=== PATIENT | female | born 1940 | race Hispanic/Latino ===

== ENCOUNTER 2024-12-16 15:18 | Emergency (ER) | payer OTHER, SELFPAY ==
--- NOTE | ~2024-12-16 | CT_ITS ---
CT cervical spine wo con Ordering provider: Fabiana Salazar History: . fall, unknown mechanism . Comparison: None. Technique: CT of the cervical spine was performed without contrast. Sagittal and coronal reformatted images were also obtained and reviewed. Automated exposure control and iterative reconstruction kush hnique were employed. The dose-length product was 202.13 mGy-cm. FINDINGS: VERTEBRAE: Minimal anterolisthesis at the level of C6-C7. Is,No subluxation or acute fracture. The oc cipital condyles are intact. Effusion of the posterior elements is seen in the upper thoracic area. DISC SPACES: Normal. Evaluation of the narrowing of the disc C5-C6 and C6-C7. Multilevel facet degen erative disease. Multilevel uncovertebral joint osteoarthritic changes. Slight narrowing of the left foramina at the level of C2-C3. Narrowing of the right foramen at the level of C3-C4. Bilateral narro wing of the foramina at the level of C4-C5, C5-C6 and C6-C7. PARASPINOUS SOFT TISSUES: Calcified lesion in the left thyroid. IMPRESSION: No acute osseous abnormality cervical spine. Minimal anterolisthesis at the level of C6-C7. Multilevel degenerative disc disease. Reviewed, dictated and finalized at location A. IMPRESSION: No acute osseous abnormality cervical spine. Minimal anterolisthesis at the lev el of C6-C7. Multilevel degenerative disc disease.
--- NOTE | ~2024-12-16 | CT_ITS ---
EXAMINATION: CT thoracic lumbar wo con DATE: 12/16/2024 16:23 INDICATION: Back pain post fall TECHNIQUE: Computed tomography (CT) of the thoracic and lumbar spine was performed without intravenou s contrast. Automated exposure control and iterative reconstruction technique were employed. The dose -length product was 1420.24 mGy-cm. COMPARISON: None FINDINGS: Thoracic spine: 23 degree thoracic dextroscoliosis with chronic appearing mild left-sided anterior wedging at T6, T7 and T8. Sagittal alignment is normal. There is additional chronic appearing mild likely physiologic a nterior wedging at T11 and T12. No acute fracture. Multilevel moderate left-sided predominant disc he ight loss throughout the mid to lower thoracic spine. There is multilevel moderate to severe thoracic facet osteoarthritis contributing to mild neural foraminal stenosis most prominent in the T2-T3 thro ugh T5-T6. No central canal stenosis. Mild dependent atelectasis in the visualized lungs. 5 mm right upper lobe nodule. Heart size is normal. Atherosclerotic coronary artery calcification is. No pericar dial or pleural effusion. Thoracic aorta is normal in caliber. Lumbar spine: 15 degrees lumbar levoscoliosis. 5 mm anterolisthesis L4 on L5. Chronic appearing L4 burst fracture w ith up to 60% central vertebral body height loss and with 6 mm retropulsion of the posterior rim of t he superior endplate. Remaining vertebral body heights are normal. No acute fractures identified. Mod erate disc height loss at L3-L4 and L4-L5. Mild disc height loss at L2-L3 and L5-S1. Multilevel sever e bilateral facet osteoarthritis from L2-L3 through L5-S1. This along with the retropulsion at L4 res ults in severe central canal stenosis at the level of L3-L4. There is additional moderate central can al stenosis at L4-5 resulting from a prominent disc bulge. Additional mild disc bulge contributing to mild central canal stenosis at T12-L1 through L2-L3 and at L5-S1. There is moderate neural foraminal stenosis on the left at L5-S1 and bilaterally at L1-L2, L3-L4 and L4-L5. Mild stenosis remaining lum bar neural foramina. 5.8 cm exophytic cyst at the lower pole the right kidney. Several diverticula al charlene the sigmoid colon without adjacent from trace stranding to suggest diverticulitis. Methylmethacry late at the bilateral sacral ala likely for treatment of prior insufficiency fractures. Old healed fr actures and across the S2 vertebral body. IMPRESSION: 1. 23 degrees thoracic dextro scoliosis with moderate spondylosis. No acute osseous abnormality. 2. 15 degrees lumbar levoscoliosis with chronic L4 burst fracture and moderate spondylosis. No acute osseous abnormality. 3. 5 mm right upper lobe nodule. If the patient is low risk for lung cancer, no follow-up is needed. If the patient is high risk (i.e., history of smoking or asbestos or significant radiation exposure), optional follow-up chest CT could be considered at 12 months. Reviewed, dictated and finalized at location A. IMPRESSION: 1. 23 degrees thoracic dextro scoliosis with moderate spondylosis. No acute oss eous abnormality. 2. 15 degrees lumbar levoscoliosis with chronic L4 burst fracture and moderate spondylosis. No acute osseous abnormality. 3. 5 mm right upper lobe nodule. If the patient is low risk for lung cancer, no follow-up is needed. If the patient is high risk (i.e., history of smoking or asbestos or significant radiation exposure), optional follow-up chest CT could be considered at 12 months.
--- NOTE | ~2024-12-16 | XR_ITS ---
XR chest 2V Ordering provider: Pipo Tinajero MD History: 84 years Female with . right lower rib pain . Comparison: None. FINDINGS: MEDIASTINUM: The cardiac silhouette is moderately enlarged. LUNGS: No infiltrates, effusions or pneumothorax. OTHER: No free air under the diaphragm. Degenerative changes of the spine. Dextroscoliosis. IMPRESSION: Reviewed, dictated and finalized at location A. IMPRESSION:
--- NOTE | ~2024-12-16 | CT_ITS ---
EXAMINATION: CT brain wo con DATE: 12/16/2024 16:20 INDICATION: Fall. Unknown head injury. TECHNIQUE: Computed tomography (CT) of the head was performed without intravenous contrast. Sagittal and coronal reconstructions were performed. The mA was adjusted according to patient size. Iterative reconstruction technique was employed. The dose-length product was 605.33 mGy-cm. COMPARISON: None FINDINGS: No fracture. Small focus of dystrophic calcification associated with a small infarct in the right fro ntal lobe. Additional small old lacunar infarct in the right frontal lobe wu radiata. No acute in tracranial hemorrhage, acute infarction or abnormal extra axial fluid collection. There is mild scatt ered white matter hypoattenuation consistent with chronic small vessel ischemic disease. Symmetric pr ominence of the sulci and ventricles consistent with mild age-appropriate diffuse cerebral volume los s. No mass/mass effect. Changes of bilateral intraocular lens replacement. Mucosal thickening with as sociated calcification within the left maxillary sinus which demonstrates thickened sclerotic pang c onsistent with chronic sinusitis. Small left mastoid effusion. IMPRESSION: 1. No fracture or acute intracranial process. 2. 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 3. Age-related changes including mild diffuse volume loss and mild scattered white matter hypoattenua tion consistent with small vessel ischemic disease. 4. Chronic left maxillary sinusitis. Reviewed, dictated and finalized at location A. IMPRESSION: 1. No fracture or acute intracranial process. 2. 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 3. Age-related changes including mild diffuse volume loss and mild scattered wh ite matter hypoattenuation consistent with small vessel ischemic disease. 4. Chronic left maxillary sinusitis.
[2024-12-16 15:32] VITALS: BP 131/86; PULSE 71; RESP 16; TEMP 36.4; O2SAT 100
--- NOTE | 2024-12-16 15:50 | ED.FALL ---
HPI - Fall General Chief Complaint: Fall <Fabiana Salazar APRN - Last Filed: 12/16/24 15:56> Stated Complaint: fall <Fabiana Salazar APRN - Last Filed: 12/16/24 15:56> Time Seen by Provider: 12/16/24 15:40 <Fabiana Salazar APRN - Last Filed: 12/16/24 15:56> Focused HPI: Patient is an 84-year-old (Guatemalan speaking) female who presents to the ER following a fall that took place last night at 3:00 a.m.. She reports she slipped and fell out of bed, although she does not remember the mechanism. Patient reports she remembers waking up on the floor. She endorses a history of a stroke, but is not on blood thinners. She denies any urinary symptoms, headache, recent fevers, or abdominal pain. Patient endorses increased pain with movement. GENERAL: Well-appearing, well-nourished, and in no acute distress. HEAD: Normocephalic, atraumatic. CHEST: Clear to auscultation. ?No respiratory distress. HEART: Regular rate and rhythm.? NEURO: ?Alert and oriented x3. Patient screened in triage and initial orders placed.? ?Additional care and disposition to be based upon?diagnostic testing and treatment. <Fabiana Salazar APRN - Last Filed: 12/16/24 15:56> History of Present Illness HPI Narrative: I agree with the above HPI <Pipo Tinajero MD - Last Filed: 12/17/24 07:22> Related Data Allergies/Adverse Reactions: Allergies Allergy/AdvReac Type Severity Reaction Status Date / Time No Known Allergies Allergy Verified 12/16/24 15:23 <Fabiana Salazar APRN - Last Filed: 12/16/24 15:56> Review of Systems Review of Systems: All systems reviewed & are unremarkable except as noted in HPI and below <Pipo Tinajero MD - Last Filed: 12/17/24 07:22> Exam Narrative: APPEARANCE: Well appearing, no pain, no distress, well-nourished. HEAD: normocephalic, atraumatic. EYES: PERRLA/EOMI, conjunctivae clear. NOSE: Normal no drainage EARS:TMS clear with good light reflex. THROAT: Pharynx clear, no exudate. NECK: Supple. No adenopathy, no masses. RESPIRATORY: Airway patent, respirations nonlabored. Clear to auscultation bilaterally, no rales, rhonchi, wheezing. CARDIOVASCULAR: Regular rate and rhythm without murmurs rubs or gallops. ABDOMINAL: Soft, nontender, nondistended, normal bowel sounds MUSCULOSKELETAL: Right-sided rib tenderness NEURO: Alert. Cranial nerves II through XII intact. Good gait. Good coordination SKIN: Warm, dry. Normal Color <Pipo Tinajero MD - Last Filed: 12/17/24 07:22> Course Vital Signs Vital signs: Vital Signs Temperature 97.6 F 12/16/24 15:32 Pulse Rate 71 12/16/24 15:32 Respiratory Rate 16 12/16/24 15:32 Blood Pressure 131/86 12/16/24 15:32 Pulse Oximetry 100 12/16/24 15:32 Temperature 97.6 F 12/16/24 15:32 Pulse Rate 55 L 12/16/24 17:57 Respiratory Rate 18 12/16/24 17:57 Blood Pressure 179/66 H 12/16/24 18:19 Pulse Oximetry 100 12/16/24 17:57 <Fabiana Salazar APRN - Last Filed: 12/16/24 15:56> Vital Signs Temperature 97.6 F 12/16/24 15:32 Pulse Rate 71 12/16/24 15:32 Respiratory Rate 16 12/16/24 15:32 Blood Pressure 131/86 12/16/24 15:32 Pulse Oximetry 100 12/16/24 15:32 Temperature 97.6 F 12/16/24 15:32 Pulse Rate 55 L 12/16/24 17:57 Respiratory Rate 18 12/16/24 17:57 Blood Pressure 179/66 H 12/16/24 18:19 Pulse Oximetry 100 12/16/24 17:57 <Pipo Tinajero MD - Last Filed: 12/17/24 07:22> MDM - Fall MDM Narrative Medical decision making narrative: 84-year-old female presents emergency department for evaluation after a fall. Patient does have some right-sided rib tenderness that is concerning for rib fracture rib contusion. Patient had negative imaging of chest x-ray, T-spine C-spine and brain. Patient family were updated on the results of the workup and plan for treatment for rib contusion. Patient was provided medications for pain control. Patient family were warmed on the risks of [place] for pain control including constipation and increased risk of falls. All questions concerns were addressed <Pipo Tinajero MD - Last Filed: 12/17/24 07:22> Differential Diagnosis Differential diagnosis: Likely other (Subdural hematoma, subarachnoid hemorrhage, rib fracture, rib contusion, pneumothorax, pneumonia) <Pipo Tinajero MD - Last Filed: 12/17/24 07:22> Imaging Data Radiologist's impression: Impressions Head CT 12/16/24 16:23 IMPRESSION: 1. No fracture or acute intracranial process. 2. 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 3. Age-related changes including mild diffuse volume loss and mild scattered white matter hypoattenuation consistent with small vessel ischemic disease. 4. Chronic left maxillary sinusitis. Cervical Spine CT 12/16/24 16:28 IMPRESSION: No acute osseous abnormality cervical spine. Minimal anterolisthesis at the level of C6-C7. Multilevel degenerative disc disease. Thoracic/Lumbar Spine CT 12/16/24 16:31 IMPRESSION: 1. 23 degrees thoracic dextro scoliosis with moderate spondylosis. No acute osseous abnormality. 2. 15 degrees lumbar levoscoliosis with chronic L4 burst fracture and moderate spondylosis. No acute osseous abnormality. 3. 5 mm right upper lobe nodule. If the patient is low risk for lung cancer, no follow-up is needed. If the patient is high risk (i.e., history of smoking or asbestos or significant radiation exposure), optional follow-up chest CT could be considered at 12 months. <Pipo Tinajero MD - Last Filed: 12/17/24 07:22> Discharge Plan Discharge Clinical Impression: Contusion of rib on right side <Fabiana Salazar APRN - Last Filed: 12/16/24 15:56> Patient Disposition: Home <Fabiana Salazar APRN - Last Filed: 12/16/24 15:56> Condition: Stable <Fabiana Salazar APRN - Last Filed: 12/16/24 15:56> Instructions: Antibiotic Form, Hydrocodone (By mouth), How to Use an Incentive Spirometer (ED), Rib Contusion (ED) <Fabiana Salazar APRN - Last Filed: 12/16/24 15:56> Additional Instructions: Incentive spirometer as directed. Tylenol for pain control, for additional pain control replace the Tylenol with [place]. Do not take [place] and Tylenol at the same time as both do contain acetaminophen. Have close follow-up with your primary care physician. <Fabiana Salazar APRN - Last Filed: 12/16/24 15:56> Patient Language: Guatemalan <Fabiana Salazar APRN - Last Filed: 12/16/24 15:56> Prescriptions: New hydrocodone-acetaminophen 5-325 mg tablet 1 tablet PO Q12H PRN (Reason: pain) Qty: 10 0RF <Fabiana Salazar APRN - Last Filed: 12/16/24 15:56> Follow-up/Referrals: PHYSICIAN NOT ON STAFF,NONSTAFF [Non-Staff] - <Fabiana Salazar APRN - Last Filed: 12/16/24 15:56>
[2024-12-16 16:52] VITALS: BP 158/66; PULSE 54; RESP 18; O2SAT 100
--- NOTE | 2024-12-16 16:53 | PC.NURSE ---
84yo kazakh speaking F to ER c/o fall from bed yesterday at 0400. Patient reports slipping and falling on her step stool beside her bed. Denies any precipitating factors or symptoms. Denies hitting her head. Patient c/o R lower back pain, worsening, 04/02. No obvious bruising or deformity noted. Pt endorses difficulty with movement and painful ambulation. Pt A&Ox4, speech clear. RR even and unlabored. Skin WDL. Pt on continuous nibp and pulse ox monitor, VS as charted. Call light in reach with family at bedside.
--- OUTSIDE RECORDS SUMMARY | 2024-12-16 17:45 | XMS_ITS | Encounter Summary ---
Author Organization [facility] Address [address] [place] [address] Care Team Providers Care Herbicide Service Sales Representative Name Role Phone Asked, No Prov Designated Primary Care Provider Unavailable Encounter Details Date Type Department Care Team (Late st Contact Info) Description 09/16/2022 Scan [facility] [address] [place] [phone] Erlin Canas MD [address] [facility] [place] [address] <No scans attached> Social History Tobacco Use Types Packs/Day Years Used Date Smoking Tobacco: Former Smokeless Tobacco: Never PHQ-2 Answer Date Recorded PHQ-2 Score 1 07/03/2021 Sex and Gender Information Value Date Recorded Sex Assigned at Not on file Gender Identity Not on file Sexual Orientation Not on file COVID-19 Exposure Response Date Recorded In the last 10 days, have yo u been in contact with someone who was confirmed or suspected to have Coronavirus/COVID-19? No / Unsure 09/10/2022 12:21 PM LOCAL SUPERINTENDENT documented as of this encounter Plan of Treatment Upcoming Encounters Date Type Department Care Team (Late st Contact Info) Description 01/25/2025 3:30 PM CDT Appointment [address] [phone] Charito Ghotra APN [address] [place] [address] documented as of this encounter Visit Diagnoses Not on filedocumented in this encounter Care Teams Herbicide Service Sales Representative Relationship Specialty Start Date End Date Asked, No Prov Designated [place] PCP - General 07/08/13 documented as of this encounter
--- OUTSIDE RECORDS SUMMARY | 2024-12-16 17:45 | XMS_ITS | Clinical Summary ---
Author Organization [facility] Address [address] [place] [address] Phone Care Team Providers Care Management Aide Name Role Phone Unavailable Primary Care Provider Unavailabl e Social History Tobacco Use Types Packs/Day Years Used Date Smoking Tobacco: Never Assessed Intimate Partner Violence Answer Date R ecorded Feels Safe at Home Not on file 10/23/2023 Comments Unknown Sex and Gender Information Value Date Recorded Sex Assigned at Not on file Legal Sex Female 2:33 PM [employer] Gender Identity Not on file Sexual Orientation Not on file Plan of Treatment Health Maintenance Due Date Last Done Comments Annual Preventive Visit 1940 Osteoporosis Screening 1940 Tdap/DTaP/Td Vaccine (1 - Tdap) 1961 Pneumococcal Vaccine: 50+ Years (1 of 1 - PCV) 993 Zoster Vaccine (1 of 2) 1992 HIV Screening 12/11/2007 RSV 60+ and Currently (1 - 1-dose 75+ series) 2017 COVID-19 Vaccine ( - season) 2024 Influenza Vaccine (#1) 2024
--- OUTSIDE RECORDS SUMMARY | 2024-12-16 17:45 | XMS_ITS | Encounter Summary ---
Author Organization [facility] Address [address] [place] [address] Care Team Providers Care Fish Frog Or Oyster Farmer Name Role Phone Asked, No Prov Designated Primary Care Provider Unavailable Encounter Details Date Type Department Care Team (Late st Contact Info) Description 03/12/2021 Scan [facility] Medical Records Department - [facility] [address] [facility], [address] Ebony Ron PA [address] [place], [place] [address] <No scans attached> Social History Tobacco Use Types Packs/Day Years Used Date Smoking Tobacco: Never Assessed Sex and Gender Information Value Date Recorded Sex Assigned at Not on file Gender Identity Not on file Sexual Orientation Not on file documented as of this encounter Plan of Treatment Upcoming Encounters Date Type Department Care Team (Late st Contact Info) Description 01/25/2025 3:30 PM CDT Appointment [facility] [address] [place] [phone] Charito Ghotra APN [address] [place] [address] documented as of this encounter Visit Diagnoses Not on filedocumented in this encounter Care Teams Fish Frog Or Oyster Farmer Relationship Specialty Start Date End Date Asked, No Prov Designated [place] PCP - General 07/08/13 documented as of this encounter
--- OUTSIDE RECORDS SUMMARY | 2024-12-16 17:45 | XMS_ITS | Referral Summary ---
Author Organization [facility] Address [address] [place] [address] Care Team Providers Care Lamp Cleaner Street Light Name Role Phone Asked, No Prov Designated Primary Care Provider Unavailable Source Comments You are receiving this document as you are listed as the PCP, follow-upprovider, or the patient hasbeen referred to you for consultation. This is incompliance with CMS Transitions of Care Requirement. Note: Specific treatmentrecords and notes about services for mental health, developmental disabilities,alcoholism, drug dependence, or substance abuse, you will need to contact the[facility] Records Department at [phone] and complete a separate Release ofAuthorization form. They are also available to answer other questions.[facility] Encounters Date Type Department Care Team Description 11/16/2024 4:55 PM CDT Ancillary Procedure [facility] [address] [place] [phone] Rell De La Fuente MD Lumbosacral spondylosis without myelopathy Discharge Disposition: HOME 11/16/2024 Travel 11/16/2024 4:30 PM CDT Office Visit [facility] [address] [place] [phone] Rell De La Fuente MD Lumbosacral spondylosis without myelopathy (Primary Dx) Discharge Disposition: HOME 11/07/[address] [facility] [address] [place] [phone] Alexandra Langston CMA from Last 3 Months Allergies No known active allergies Medications * Please verify all current medications with the patient. Medication Sig Dispensed Refills Start Date End Date Status amLODIPine 10 MG PO tablet Take 1 Tablet by mouth daily. Active levothyroxine 125 MCG PO tablet Take by mouth daily. Active hydrochlorothiazid e 25 MG PO tablet Take 1 Tablet by mouth daily. Active aspirin 81 MG chewable tablet Take 1 Tablet by mouth. take with food Active OMEPRAZOLE Active vitamin D-2, ergocalciferol, [address]781 UNIT capsule Take 1 Capsule by mouth weekly. 12 Capsule 4 07/08/2021 Active calcitonin, salmon (MIACALCIN) 200 UNIT/ACT nasal spray place 1 [place] into both nostrils daily. Active methylPREDNISolone (Medrol) 4 MG tablet (Dose Pack) Take as directed 1 Each 07/23/2022 Active methocarbamol (ROBAXIN) 500 MG tablet Take 1 Tablet by mouth 3 times daily. 90 Tablet 08/06/2022 Active alendronate (FOSAMAX) 70 MG tablet Take 1 Tablet by mouth weekly. Active HYDROcodone-acetam inophen ([place]) 5-325 MG per tablet Take 1 Tablet by mouth every 12 (twelve) hours if needed for pain. 60 Tablet 07/20/2023 Active Additional Information Patient not taking.Reported on 05/16/2024 Naloxone HCl 4 MG/0.1ML Liquid 0.1 mL by nasal route once as needed (for any signs symptoms of respiratory depression related to opioid use) for up to 1 dose. 1 Each 07/20/2023 Active Hospital, Clinic, or Other Facility Administered Medication Ordered Dose Route Frequency Start Date End Date Status bupivacaine (preservative free) 0.25 % 12.5 mg injIndications:Lumbos acral spondylosis without myelopathy 12.5 mg fred-neural NOW 11/16/2024 11/17/2024 Ended triamcinolone acetonide injection 40 mgIndications:Lumbosa cral spondylosis without myelopathy 40 mg fred-neural NOW 11/16/2024 11/17/2024 Ended Active Problems Problem Noted Date Diagnosed Date Bilateral primary osteoarthritis of knee 024 Lumbosacral spondylosis without myelopathy 07/20 Spinal stenosis of lumbar re gion with neurogenic claudication 07/20/2023 Lumbar radiculopathy 07/20/2023 History of vertebral compression fracture 2022 Nausea and vomiting 07/18/2013 Abdominal pain, generalized 07/18/2013 Hypokalemia 07/18/2013 GIOVANY (acute kidney injury) 07/18/2013 Metabolic acidosis 07/18/2013 Diarrhea 07/18/2013 Social History Tobacco Use Types Packs/Day Years Used Date Smoking Tobacco: Former Smokeless Tobacco: Never Tobacco Cessation:Counseling Given: Yes PHQ-2 Answer Date Recorded PHQ-2 Score 0 11/16/2024 Sex and Gender Information Value Date Recorded Sex Assigned at Not on file Gender Identity Not on file Sexual Orientation Not on file Last Filed Vital Signs Vital Sign Reading Time Taken Comments Blood Pressure 187/74 11/16/2024 4:21 PM CDT Pulse 61 11/16/2024 4:21 PM CDT Temperature 37.1 C (98.7 F) 05/16/2020 10:36 AM CDT Respiratory Rate 16 11/16/2024 4:21 PM CDT Oxygen Saturation 94% 11/16/2024 4:21 PM CDT Inhaled Oxygen Concentration - - Weight 64 kg (141 lb) 11/16/2024 4:21 PM CDT Height 149.9 cm (4' 11 ) 11/16/2024 4:21 PM CDT Body Mass Index 28.48 11/16/2024 4:21 PM CDT Plan of Treatment Upcoming Encounters Date Type Department Care Team (Late st Contact Info) Description 01/25/2025 3:30 PM CDT Appointment [address] [phone] Charito Ghotra APN [address] [place] [address] Procedures Procedure Name Priority Date/Time Associated Diagnosis Comments [place] XRAY FOR PAIN CLINIC Routine 11/16/2024 5:25 PM CDT Lumbosacral spondylosis without myelopathy NM DEXA BONE DENSITY Routine 09/23/2021 8:38 AM CUSTOMER CARE TEAM COACH Compression fracture of L4 vertebra with delayed healing, subsequent encounter COLONOSCOPY Routine 07/19/2013 11:17 AM CUSTOMER CARE TEAM COACH from Last 3 Months or Most Recently Relevant to Health Maintenance Results * FL XRAY FOR PAIN CLINIC (11/16/2024 5:25 PM CDT) Narrative IMAGING - 11/16/2024 5:26 PM CDT This procedure doesn't have a radiologist's report. Please see the Chart Review activity for pertinent information. Rell De La Fuente MD IMG FLUOROSCOPY PROC EDURES IMAGING [address] [place] [address] * NM DEXA BONE DENSITY (09/23/2021 8:38 AM CUSTOMER CARE TEAM COACH) Anatomical Region Laterality Modality Aortic arch Radiographic Noa ging 09/23/2021 8:49 AM CUSTOMER CARE TEAM COACH Impressions 09/23/2021 8:51 AM CUSTOMER CARE TEAM COACH IMPRESSION: Osteoporosis is associated with a high fracture risk. There is osteoporosis of one or both femoral necks. There is osteopenia of the lumbar spine. WHO CRITERIA FOR OSTEOPOROSIS: INCREASED BMD: T SCORE > +1.0 NORMAL BMD: T SCORE = +1.0 TO -1.0 (low Fracture Risk) OSTEOPENIA: T SCORE = -1.1 TO -2.5 (Moderate Fracture Risk) OSTEOPOROSIS: T SCORE <= -2.5 (High Fracture Risk) Risk Factors for Osteoporosis Nonmodifiable 1. History of fracture as an adult 2. History of fracture in first degree relative 3. race 4. Advanced age 5. Female sex 6. Dementia 7. Poor health/frailty Modifiable 1. Current cigarette smoking 2. Low body weight 3. Estrogen deficiency 4. Early menopause/bilateral ovariectomy 5. Premenopausal amenorrhea (>1 year) 6. Lifelong poor calcium intake 7. Alcoholism 8. Impaired eyesight despite correction 9. Recurrent falls 10. Inadequate physical activity Finalized report approved by Attending: Dionte Powell on 09/23/2021 8:51 AM. Narrative 09/23/2021 8:51 AM CUSTOMER CARE TEAM COACH CLINICAL INDICATION: .S32.040G: Wedge compression fracture of fourth lumbar vertebra, subsequent encounter for fracture with delayed healing COMPARISON: None. TECHNIQUE: Location of Scan: [facility] Device: [employer] NOTE: This device uses different regions and technology for BMD measurement. Absolute values for BMD may be different. Automatic trending with prior studies performed over the L2-L4 region is unavailable. Comparison is made to the L1-L4 region if available. FINDINGS: Lumbar Spine: The AVG BMD OF the L1-L4 region = 0.835 gm/cm2, T-score = -1.9, Z-score = 0.7. Findings are consistent with osteopenia. Degenerative changes are noted in the lumbar spine. This can artificially elevate the calculation of bone density. Femoral Neck: The total BMD of the LEFT femoral neck = 0.551 gm/cm2, T-score = -2.7, Z-score = -0.5. The Findings are consistent with osteoporosis. The total BMD of the RIGHT femoral neck = 0.591 gm/cm2, T-score = -2.3, Z-score = -0.2. The Findings are consistent with osteopenia. The MEAN BMD of the femoral necks (used for trending) = 0.571 gm/cm2, T-score = -2.5, Z-score = -0.3. The Findings are consistent with osteoporosis. Proximal Femurs: The MEAN BMD of the proximal femurs = 0.552 gm/cm2, T-score = -3.2, Z-score = -1.1. The Findings are consistent with osteoporosis. Trabecular Bone Score (Lumbar Spine Only): The trabecular bone score of the L1-L4 region = 1.277. Fracture risk class: Moderate. Risk class values for TBS: Low: >= 1.300 Moderate: 1.200 to 1.300 High: <1.200 The trabecular bone score is an independent risk of fracture. The results are based on the texture of the of the DEXA image and is related to the bone microarchitecture. These results are provided as a complement to the DEXA analysis and can be used to further refine the BMD findings. Risk Assessment Tool Score (FRAX): Value adjusted based on Trabecular Bone Score (if available) The FRAX score is unavailable for one of the following reasons: 1. The patient has a normal BMD. 2. The patient is younger than 40 years of age. 3. The patient is premenopausal. 4. The patient has already had a vertebral or hip fracture. 5. The T-score for the total spine, total hip or femoral neck is at or below -2.5. 6. The patient is already receiving therapy for decreased bone density. Procedure Note Dionte Powell MD - 09/23/2021 CLINICAL INDICATION: .S32.040G: Wedge compression fracture of fourthlumbar vertebra, subsequent encounter for fracture with delayed healing COMPARISON: None. TECHNIQUE: Location of Scan: [facility] Device: [employer] NOTE: This device uses different regions and technology for BMDmeasurement. Absolute values for BMD may be different. Automatic trending with priorstudies performed over the L2-L4 region is unavailable. Comparison is made to theL1-L4 region if available. FINDINGS: Lumbar Spine: The AVG BMD OF the L1-L4 region = 0.835 gm/cm2, T-score = -1.9, Z-score= 0.7. Findings are consistent with osteopenia. Degenerative changes are noted in the lumbar spine. This canartificially elevate the calculation of bone density. Femoral Neck: The total BMD of the LEFT femoral neck = 0.551 gm/cm2, T-score = -2.7, Z-score = -0.5. The Findings are consistent with osteoporosis. The total BMD of the RIGHT femoral neck = 0.591 gm/cm2, T-score = -2.3, Z-score = -0.2. The Findings are consistent with osteopenia. The MEAN BMD of the femoral necks (used for trending) = 0.571 gm/cm2,T-score = -2.5, Z-score = -0.3. The Findings are consistent with osteoporosis. Proximal Femurs: The MEAN BMD of the proximal femurs = 0.552 gm/cm2, T-score = -3.2,Z-score = -1.1. The Findings are consistent with osteoporosis. Trabecular Bone Score (Lumbar Spine Only): The trabecular bone score of the L1-L4 region = 1.277. Fracture risk class: Moderate. Risk class values for TBS: Low: >= 1.300 Moderate: 1.200 to 1.300 High: <1.200 The trabecular bone score is an independent risk of fracture. The resultsare based on the texture of the of the DEXA image and is related to the bone microarchitecture. These results are provided as a complement to the DEXA analysis and can beused to further refine the BMD findings. Risk Assessment Tool Score (FRAX): Value adjusted based on Trabecular Bone Score (if available) The FRAX score is unavailable for one of the following reasons: 1. The patient has a normal BMD. 2. The patient is younger than 40 years of age. 3. The patient is premenopausal. 4. The patient has already had a vertebral or hip fracture. 5. The T-score for the total spine, total hip or femoral neck is at orbelow -2.5. 6. The patient is already receiving therapy for decreased bone density. IMPRESSION: IMPRESSION: Osteoporosis is associated with a high fracture risk. There is osteoporosis of one or both femoral necks. There is osteopenia of the lumbar spine. WHO CRITERIA FOR OSTEOPOROSIS: INCREASED BMD: T SCORE > +1.0 NORMAL BMD: T SCORE = +1.0 TO -1.0 (low Fracture Risk) OSTEOPENIA: T SCORE = -1.1 TO -2.5 (Moderate Fracture Risk) OSTEOPOROSIS: T SCORE <= -2.5 (High Fracture Risk) Risk Factors for Osteoporosis Nonmodifiable 1. History of fracture as an adult 2. History of fracture in first degree relative 3. race 4. Advanced age 5. Female sex 6. Dementia 7. Poor health/frailty Modifiable 1. Current cigarette smoking 2. Low body weight 3. Estrogen deficiency 4. Early menopause/bilateral ovariectomy 5. Premenopausal amenorrhea (>1 year) 6. Lifelong poor calcium intake 7. Alcoholism 8. Impaired eyesight despite correction 9. Recurrent falls 10. Inadequate physical activity Finalized report approved by Attending: Dionte Powell on 09/23/2021 8:51AM. Jasmin Gottlieb MD IMG XR PROCEDURES * COLONOSCOPY (07/19/2013 11:17 AM CUSTOMER CARE TEAM COACH) 07/19/2013 11:1 7 AM CUSTOMER CARE TEAM COACH Valarie Reina MD GI LAB COLONOSCOP Y PROVATION from Last 3 Months or Most Recently Relevant to Health Maintenance Care Teams Lamp Cleaner Street Light Relationship Specialty Start Date End Date Asked, No Prov Designated [place] PCP - General 07/08/13
--- OUTSIDE RECORDS SUMMARY | 2024-12-16 17:45 | XMS_ITS | Clinical Summary ---
Author Organization [facility] Address [address] [address] Care Team Providers Care Motion Picture Projectionist Name Role Phone Richelle Orellana M.D. Unavailable [phone] Love London P.ASumanth Unavailable [phone] Ebony Ron Primary Care Provider [phone] Unknown, Unk Unavailable Unavailable Marylou Fitzgerald PRickey Unavailable [phone] Allergies No known active allergies Medications diclofenac sodium (Voltaren) 1 % gel Apply 1 Application to the affected area(s) four times daily as needed (pain). Active traZODone (DesyreL) 100 mg tablet Take 100 mg by mouth every night at bedtime. Active levothyroxine 50 mcg tablet Take 50 mcg by mouth every morning. Active omeprazole (PRILOSEC) 40 mg capsule Take 40 mg by mouth every morning. Active alendronate (FOSAMAX) 70 mg tablet Take 70 mg by mouth every 7 days. Active gabapentin (Neurontin) 300 mg capsule Take 300 mg by mouth three times daily. Active cholecalcifero l (vitamin D3) (VITAMIN D3 ORAL) Take 1 tablet by mouth daily. Active VITAMIN B COMPLEX ORAL Take 1 tablet by mouth daily. Active MAGNESIUM OXIDE ORAL Take 1 tablet by mouth daily. Active lisinopriL (PRINIVIL) 40 mg tablet Take 1 tablet by mouth daily. 30 tablet 3 Active acetaminophen (TYLENOL) 500 mg tablet Take 2 tablets by mouth every 8 hours as needed for moderate pain or mild pain. Acetaminophen max dose 4 g per 24 hours. 30 tablet 3 Active lidocaine (Lidoderm) 5% patch Apply 1 patch to the skin every 24 hours. Keep patch on for 12 hours, then remove patch and keep off for 12 hours. 30 patch 3 Active metoprolol succinate (TOPROL XL) 25 mg extended release tablet Take 1 tablet by mouth daily. 30 tablet 3 Active mirtazapine (REMERON) 7.5 mg tablet Take 1 tablet by mouth every night at bedtime. 7 tablet 3 Active NIFEdipine-XL (Procardia XL) 30 mg extended-relea se tablet Take 1 tablet by mouth daily. 30 tablet 3 Active polyethylene glycol 3350 (MIRALAX) 17 gram oral packet Take 1 packet by mouth daily. Dissolve in 8 ounces of water. 7 packet 3 Active sennosides-doc usate sodium (JIMENA-COLACE) 8.6-50 mg tab Take 1 tablet by mouth twice daily. 14 tablet 3 Active traMADol (Ultram) 50 mg tablet Take 1 tablet by mouth every 6 hours as needed for moderate pain. 14 tablet 3 Active pantoprazole (PROTONIX) 40 mg tablet Take 40 mg by mouth daily. 3 Active CALCIUM ORAL Take by mouth. Ac tive ascorbic acid (VITAMIN C ORAL) Take by mouth. Activ e Active Problems Problem Noted Date Diagnosed Date IVH (intraventricular hemorrhage) 03/24/2023 Hypertension 02/11/2023 Hypothyroid 02/11/2023 Osteoporosis 02/11/2023 Chronic knee pain 02/11/2023 Closed compression fracture of L4 lumbar vertebr a, sequela 02/11/2023 Family History Medical History Relation Comments Cancer - Colorectal Father Relation Status Comments Father Mother Social History Tobacco Use Types Packs/Day Years Used Date Smoking Tobacco: Never Smokeless Tobacco: Never Tobacco Cessation:Counseling Given: Not Answered Alcohol Use Standard Drinks/Week Comments Never 0 (1 standard drink = 0.6 oz pur e alcohol) Comments No Sex and Gender Information Value Date Recorded Sex Assigned at Not on file Legal Sex Female 7:19 PM CDT Gender Identity Not on file Sexual Orientation Not on file Last Filed Vital Signs Vital Sign Reading Time Taken Comments Blood Pressure 124/65 06/24/2023 11:19 AM CDT Pulse 68 06/24/2023 11:19 AM CDT Temperature 36.5 C (97.7 F) 06/24/2023 11:19 AM CDT Respiratory Rate 18 05/26/2023 10:3 4 AM CDT Oxygen Saturation 99% 05/26/2023 10: 34 AM CDT Inhaled Oxygen Concentration - - Weight 64.7 kg (142 lb 11.2 oz) 023 11:19 AM CDT Height 152.4 cm (5') 06/24/2023 11:19 AM CDT Body Mass Index 27.87 06/24/2023 11:19 AM CDT Plan of Treatment Health Maintenance Due Date Last Done Comments TDAP/TD VACCINE (1 - Tdap) 1951 DEPRESSION SCREENING 1954 Pneumococcal Vaccine: 65+ Ye ars (1 of 1 - PCV) 1992 ZOSTER SERIES VACCINE (1 of 2) 1992 OSTEOPOROSIS SCREENING 07/24/2014 Adult RSV VACCINE (1 - 1-dos e 75+ series) 2017 COVID-19 VACCINE ( - 2023-2 5 season) 2024 10/24/2020, 09/26/2020 INFLUENZA VACCINE (Season Ended) 2025 DIABETES SCREENING 02/19/2026 02/19/2023, 0 02/18/2023, 02/18/2023, Additional history exists Procedures Procedure Name Priority Date/Time Associated Diagnosis Comments HC BASIC METABOLIC PANEL ROUTINE 02/19/2023 7:05 AM CDT from Last 3 Months or Most Recently Relevant to Health Maintenance Results * Basic Metabolic Panel (02/19/2023 7:05 AM CDT) Glucose 88 60 - 99 mg/dL 02/19/2023 8:51 AM CDT [facility] Comment:Reference range for fasting plasma glucose only. Sodium 137 135 - 145 mmol/L 02/19/2023 8:51 AM CDT [facility] Potassium 4.0 3.5 - 5.0 mmol/L 02/19/2023 8:51 AM T [facility] Chloride 102 98 - 108 mmol/L 02/19/2023 8:51 AM T [facility] Carbon Dioxide 25 23 - 30 mmol/L 02/19/2023 8:51 AM T [facility] Anion Gap 10 6 - 15 mmol/L 02/19/2023 8:51 AM T [facility] Blood Urea Nitrogen 13 7 - 20 mg/dL 02/19/2023 8:51 AM T [facility] Creatinine 0.63 0.50 - 1.40 mg/dL 02/19/2023 8:51 AM T [facility] eGFR Estimate, All 90 >=90 mL/min/1.7 3 sq. m 02/19/2023 8:51 AM T [facility] Comment: eGFR calculated using the 2020 CKD-EPI non-race equation. Chronic Kidney Disease: <60 mL/min/1.73 sq. m Stage 3a: 45-59 mL/min/1.73 sq. m Stage 3b: 30-44 mL/min/1.73 sq. m Stage 4: 15-29 mL/min/1.73 sq. m Stage 5: <15 mL/min/1.73 sq. m Calcium 8.7 8.4 - 10.2 mg/dL 02/19/2023 8:51 AM T [facility] Blood VENOUS BLOOD SPECIMEN / Unknown Venipuncture / Unknown 02/19/2023 7:05 AM CDT 02/19/2023 8:07 AM T us Ally Hinton A.P.N. LAB CHEMISTRY ORDERABLES Dara l Result [facility] [address] [facility] [place] [address] from Last 3 Months or Most Recently Relevant to Health Maintenance [place] Care Teams Motion Picture Projectionist Relationship Specialty Start Date End Date RonEbony [address] [id number] ANDREW Jorge [phone] PCP - General 02/19/23 Richelle Orellana M.D. [address] [facility] [address] [place] [address] Referring Provider Neurosurgery 02/18/23 Love London, PRickey [address] [facility] [address] [place] [address] Referring Provider Neurology 02/19/23 Unknown, Unk Referring Provider 03/31/23 Marylou Fitzgerald PRickey [address] [facility] [place] [address] Referring Provider Neurosurgery 05/26/23
--- OUTSIDE RECORDS SUMMARY | 2024-12-16 17:45 | XMS_ITS | Encounter Summary ---
Author Organization [facility] Address [address] [place] [address] Care Team Providers Care Respiratory Care Specialist Name Role Phone Asked, No Prov Designated Primary Care Provider Unavailable Encounter Details Date Type Department Care Team (Late Contact Info) Description 03/05/2022 Scan [facility] Department - [facility] [address] [facility], [address] Jonn Apodaca MD [address] [facility] [place], [place] [address] <No scans attached> Social History Tobacco Use [...] suspected to have Coronavirus/COVID-19? No / Unsure 03/05/2022 3:31 PM CDT documented as of this encounter Plan of Treatment Upcoming Encounters Date Type Department Care Team (Late st Contact Info) Description 01/25/2025 3:30 PM CDT Appointment [address] [phone] Charito Ghotra APN [address] [place] [address] documented as of this encounter Visit Diagnoses Not on filedocumented in this encounter Care Teams Respiratory Care Specialist Relationship Specialty Start Date End Date Asked, No Prov Designated [place] PCP - General 07/08/13 documented as of this encounter
--- OUTSIDE RECORDS SUMMARY | 2024-12-16 17:45 | XMS_ITS | Clinical Summary ---
Author Organization [facility] Address [address] [place] [address] Care Team Providers Care Ropewalk Rope Maker Name Role Phone Asked, No Prov Designated Primary Care Provider Unavailable Source Comments You are receiving this document as you are listed as the PCP, follow-upprovider, or the patient hasbeen referred to you for consultation. This is incompliance with [facility] Transitions of Care Requirement. Note: Specific treatmentrecords and notes about services for mental health, developmental disabilities,alcoholism, drug dependence, or substance abuse, you will need to contact theMedical Records Department at [phone] and complete a separate Release ofAuthorization form. They are also available to answer other questions.[facility] Allergies No known active allergies Medications * [...] food Active OMEPRAZOLE Active vitamin D-2, ergocalciferol, 90282 UNIT capsule Take 1 Capsule by mouth weekly. 12 Capsule 4 07/08/2021 Active calcitonin, salmon (MIACALCIN) 200 UNIT/ACT nasal spray place 1 [place] into both nostrils daily. Active methylPREDNISolone (Medrol) 4 MG tablet (Dose Pack) Take as directed 1 Each 07/23/2022 Active methocarbamol (ROBAXIN) 500 MG tablet Take 1 Tablet by mouth 3 times daily. 90 Tablet 08/06/2022 Active alendronate (FOSAMAX) 70 MG tablet Take 1 Tablet by mouth weekly. Active HYDROcodone-acetam inophen (Quimby) 5-325 MG per tablet Take 1 Tablet [...] injury) 07/18/2013 Metabolic acidosis 07/18/2013 Diarrhea 07/18/2013 Encounters Date Type Department Care Team Description 11/16/2024 4:55 PM CDT Ancillary Procedure [facility] [address] [place] [phone] Rell De La Fuente MD Lumbosacral spondylosis without myelopathy Discharge Disposition: HOME 11/16/2024 4:30 PM CDT Office Visit [facility] [address] [place] [phone] Rell De La Fuente MD Lumbosacral spondylosis without myelopathy (Primary Dx) Discharge Disposition: HOME 11/16/2024 Travel 11/07/2024 Telephone [facility] [address] [place] [address] Alexandra Langston CMA from Last 3 Months Social History Tobacco Use Types Packs/Day Years [...] Info) Description 01/25/2025 3:30 PM CDT Appointment [facility] [address] [place] [address] Charito Ghotra APN [address] [place] [address] Health Maintenance Due Date Last Done Comments ADULT VACCINE: TETANUS( TD) BOOSTER,EVERY 10 YR 1961 CHOL SCREENING: EVERY 5 YEARS 1962 CA SCREENING: MAMMOGRAM, ANNUAL 1982 ADULT VACCINE: SHINGRIX (1 of 2) 1992 PNEUMOCOCCAL VACCINE: 65+ YEARS (1 of 1 - PCV) 1992 ADULT RSV > 60 YRS & PATIENTS (1 - 1-dose 75+ series) 2017 CA SCREENING: COLONOSCOPY,EVERY 10 YEARS,ROUTINE 07/19/2023 07/19/2013 OSTEOPOROSIS SCREENING: BONE DENSITOMETRY 09/23/2023 09/23/2021 Covid-19 Vaccine ( season) 2024 10/24/2020, 09/26/2020 INFLUENZA VACCINE (#1) 2024 ANNUAL BMI COUNSELING 11/16/2025 11/16/2024 , 05/16/2024, 11/10/2023, Additional history exists ANNUAL DEPRESSION SCREENING,ADULT 11/16/2025 11/16/2024, 11/10/2023, 07/20/2023, Additional history exists ANNUAL FALL RISK ASSESSMENT 11/16/2025 03/01/2025, 07/20/2023, 04/10/2022, Additional history exists PEDS RSV < 20 MON Aged Out No longer eligible based on patient's age to complete this topic Procedures Procedure Name Priority Date/Time Associated Diagnosis Comments [place] XRAY FOR PAIN CLINIC Routine 11/16/2024 5:25 PM CDT Lumbosacral spondylosis without myelopathy NM DEXA BONE DENSITY Routine 09/23/2021 8:38 AM GANG SAW OPERATOR Compression fracture of L4 vertebra with delayed healing, subsequent encounter COLONOSCOPY Routine 07/19/2013 11:17 AM GANG SAW OPERATOR from Last 3 Months or Most Recently Relevant to Health Maintenance Results * FL XRAY FOR PAIN CLINIC (11/16/2024 5:25 PM CDT) Narrative IMAGING - 11/16/2024 5:26 PM CDT This procedure doesn't have a radiologist's report. Please see the Chart Review activity for pertinent information. Rell De La Fuente MD IMG FLUOROSCOPY PROC EDURES IMAGING [address] [place] [address] * NM DEXA BONE DENSITY (09/23/2021 8:38 AM GANG SAW OPERATOR) Anatomical Region Laterality Modality Aortic arch Radiographic Noa ging 09/23/2021 8:49 AM GANG SAW OPERATOR Impressions 09/23/2021 8:51 AM GANG SAW OPERATOR IMPRESSION: Osteoporosis is associated with a high [...] 09/23/2021 8:51 AM. Narrative 09/23/2021 8:51 AM [facility] CLINICAL INDICATION: .S32.040G: Wedge compression fracture of fourth lumbar vertebra, subsequent encounter for fracture with delayed healing COMPARISON: None. TECHNIQUE: Location of Scan: [facility] Device: Red Karaoke NOTE: This device uses different regions and [...] healing COMPARISON: None. TECHNIQUE: Location of Scan: [facility] Device: Red Karaoke NOTE: This device uses different regions and [...] XR PROCEDURES * COLONOSCOPY (07/19/2013 11:17 AM GANG SAW OPERATOR) 07/19/2013 11:1 7 AM GANG SAW OPERATOR Valarie Reina MD GI LAB COLONOSCOP Y PROVATION from Last 3 Months or Most Recently Relevant to Health Maintenance Care Teams Ropewalk Rope Maker Relationship Specialty Start Date End Date Asked, No Prov Designated [place] PCP - General 07/08/13
--- OUTSIDE RECORDS SUMMARY | 2024-12-16 17:45 | XMS_ITS | Encounter Summary ---
Author Organization [facility] Address [address] [place] [address] Care Team Providers Care Buckle Attaching Machine Operator Name Role Phone Asked, No Prov Designated Primary Care Provider Unavailable Reason for Referral * Consult (Emergency) - Closed Specialty Diagnoses / Procedures Referred By Vicente gayle Referred To Contact Cardiology Diagnoses Atrial fibrillation, unspecified type Ebony Ron PA [address] [place] [address] Referral ID Status Reason Start Date Expiration Date V isits Requested Visits Authorized [id number] Closed Visit(s) 04/02/2023 07/03/2023 1 1 Encounter Details Date Type Department Care Team (Late st Contact Info) Description 04/02/2023 Community Orders [facility] [phone] Ebony Ron PA [address] [place], [place] [id number] Atrial fibrillation, unspecified type (Primary Dx) Social History Tobacco Use Types Packs/Day Years [...] PM CDT Appointment [facility] [address] [place] [phone] Charito Ghotra APN [address] [place], [place] [address] Scheduled Referrals Name Type Priority Associated Diagnoses Orde r Schedule CARDIOLOGY REFERRAL Referral STAT Atrial fibrillation, unspecified type 1 Occurrences starting 04/02/2023 until 07/03/2023 documented as of this encounter Visit Diagnoses Diagnosis Atrial fibrillation, unspecified type- Primary documented in this encounter Care Teams Buckle Attaching Machine Operator Relationship Specialty Start Date End Date Asked, No Prov Designated [place] PCP - General 07/08/13 documented as of this encounter
--- OUTSIDE RECORDS SUMMARY | 2024-12-16 17:45 | XMS_ITS | Clinical Summary ---
Author Organization [facility] Address [address] [place] [address] Care Team Providers Care Complex Commercial Litigation Paralegal Name Role Phone Armando Solis MD Primary Care Provider + [phone] Allergies No known active allergies Medications Medication Sig Dispensed Refills Start Date End Date Status lisinopril 40 MG tablet Take 1 tablet (40 mg total) by mouth 1 (one) time each day. Active pantoprazole (Protonix) 40 MG EC tablet Take 1 tablet (40 mg total) by mouth 1 (one) time each day before breakfast. Do not crush, chew, or split. Active levothyroxine (Synthroid, Levoxyl) 50 MCG tablet Take 1 tablet (50 mcg total) by mouth 1 (one) time each day in the morning. Active metoprolol succinate XL (Toprol-XL) 25 MG 24 hr tablet Take 1 tablet (25 mg total) by mouth 1 (one) time each day. Do not crush or chew. Active Active Problems Problem Noted Date Diagnosed Date Enterocolitis 11/04/2023 Lumbar radiculopathy 07/20/2023 Lumbosacral spondylosis without myelopathy 07/20 History of vertebral compression fracture 2022 Osteoporosis 02/11/2023 Hypothyroid 02/11/2023 Hypertension 02/11/2023 Closed compression fracture of L4 lumbar vertebr a, sequela 02/11/2023 Chronic knee pain 02/11/2023 Abdominal pain, generalized 07/18/2013 Resolved Problems Problem Noted Date Diagnosed Date Resolved Date Right lower quadrant abdominal pain 11/05/2023 11/08/2023 Social History Tobacco Use Types Packs/Day Years Used Date Smoking Tobacco: Never Assessed AUDIT-C Answer Date Recorded Q1: How often do you have a drink containing alcohol? Never 11/05/2023 Q2: How many drinks containi ng alcohol do you have on a typical day when you are drinking? Patient does not drink Q3: How often do you have si x or more drinks on one occasion? Never 11/05/2023 Health Literacy Answer Date Recorded How often do you need to hav e someone help you when you read instructions, pamphlets, or other written material from your doctor or pharmacy? Never 11/05/2023 [facility] Food Security Answer Date Recorded Within the past 12 months, t he food you bought just didn't last and you didn't have money to get more. 3 11/05/2023 Within the past 12 months, y ou worried that your food would run out before you got money to buy more. 3 11/05/2023 [facility] Transportation Needs Answer Date Re corded In the past 12 months, has l ack of reliable transportation kept you from medical appointments, meetings, work or from getting things needed for daily living? No 11/05/2023 [facility] Housing Answer Date Recorded What is your living situation today? I have a [facility] place to live 11/05/[address] you li ve. Do you have problems with any of the following? None of the above 11/05/2023 [facility] Safety Answer Date Recorded How often does anyone, franckbharath ayala family and friends, threaten you with harm? 1 11/05/2023 How often does anyone, alem ayala family and friends, insult or talk down to you? 1 11/05/2023 How often does anyone, alem ayala family and friends, physically hurt you? 1 11/05/2023 How often does anyone, alem ayala family and friends, scream or curse at you? 1 11/05/2023 [facility] Utilities Answer Date Recorded In the past 12 months has th e electric, gas, oil, or water company threatened to shut off services in your home? No 11/05/2023 Sex and Gender Information Value Date Recorded Sex Assigned at Not on file Gender Identity Female 05/23/2023 6:15 AM EDT Sexual Orientation Not on file Last Filed Vital Signs Vital Sign Reading Time Taken Comments Blood Pressure 146/66 07/14/2024 2:00 AM INCLUSION INTERN Pulse 67 07/14/2024 2:00 AM INCLUSION INTERN Temperature 36.7 C (98.1 F) 07/13/2024 10:25 PM INCLUSION INTERN Respiratory Rate 18 07/14/2024 2:00 AM INCLUSION INTERN Oxygen Saturation 94% 07/14/2024 2:00 AM INCLUSION INTERN Inhaled Oxygen Concentration - - Weight 65.8 kg (145 lb 1 oz) 11/05/2023 12:00 AM CDT Height 157.5 cm (5' 2 ) 11/04/2023 6:50 PM CDT Body Mass Index 26.53 11/04/2023 6:50 PM CDT Plan of Treatment Health Maintenance Due Date Last Done Comments Annual Physical 06/11/1943 DTaP/Tdap/Td Vaccines (1 - Tdap) 1961 Pneumococcal Vaccine: 50+ Years (1 of 1 - PCV) 1992 Zoster Vaccines (1 of 2) 1992 Respiratory Syncytial Virus (RSV) 60 years and older and/or patients (1 - 1-dose 75+ series) 2017 Bone Density Scan 09/23/2023 09/23/2021, 05/04/2021 COVID-19 Vaccine ( - 2023-2 5 season) 2024 10/24/2020, 09/26/2020 Influenza Vaccine (Season Ended) 2025 Lipid Panel 02/19/2028 02/18/2023, 04/16/2019 HPV Vaccines Aged Out No longer eligi ble based on patient's age to complete this topic Hepatitis A Vaccines Aged Out No long er eligible based on patient's age to complete this topic Hepatitis B Vaccines Aged Out No long er eligible based on patient's age to complete this topic Meningococcal B Vaccine Aged Out No l onger eligible based on patient's age to complete this topic Meningococcal Vaccine Aged Out No rafaela harrison eligible based on patient's age to complete this topic Respiratory Syncytial Virus (RSV) <20 months Aged Out No longer eligible b ased on patient's age to complete this topic Procedures Procedure Name Priority Date/Time Associated Diagnosis Comments DEXA BONE DENSITY Routine 05/04/2021 2:5 7 PM CDT LIPID PANEL Routine 04/16/2019 5:34 AM CDT from Last 3 Months or Most Recently Relevant to Health Maintenance Results * DEXA Bone Density Axial Skeleton (05/04/2021 2:57 PM CDT) Anatomical Region Laterality Modality Body N/A Digital Radiogra phy 05/04/2021 2:44 PM CDT Narrative 05/04/2021 3:46 PM CDT DEXA BONE SCAN HISTORY: Osteoporosis screening Please see computer generated report. FINDINGS: The bone mineral density in the lumbar spine is 0.957 gm/cm2 with T-score of -1.9. This is compatible with osteopenia. The bone mineral density in the right femoral neck is 0.656 gm/cm2 with T-score of -2.7. This is compatible with osteoporosis. The bone mineral density in the total mean femur is 0.650 gm/cm2 with T-score of -2.8. This is compatible with osteoporosis. IMPRESSION: Bone mineral density is compatible with osteoporosis. FRAX SCORE: Not calculated Dictating Shannen Coe Dictated 05/04/2021 15:46 Signing Shannen Coe [facility] Final Transcribed by: BREN 05/04/21 15:46 Signed by: SHANNEN MAYA MD 05/04/21 15:46 Procedure Note Shannen Maya - 04/18/2023 DEXA BONE SCAN HISTORY: Osteoporosis screening Please see computer generated report. FINDINGS: The bone mineral density in the lumbar spine is 0.957 gm/cm2 with T-scoreof -1.9. This is compatible with osteopenia. The bone mineral density in the right femoral neck is 0.656 gm/cm2 withT-score of -2.7. This is compatible with osteoporosis. The bone mineral density in the total mean femur is 0.650 gm/cm2 withT-score of -2.8. This is compatible with osteoporosis. IMPRESSION: Bone mineral density is compatible with osteoporosis. FRAX SCORE: Not calculated Dictating Shannen Coe Dictated 05/04/2021 15:46 Signing Shannen Coe Location [facility] Final Transcribed by: BREN 05/04/2115:46 Signed by: SHANNEN MAYA MD 05/04/2115:46 Ebony Ron PA-C IMG DXA PRO CEDURES * Lipid Panel (04/16/2019 5:34 AM CDT) Cholesterol, Total 170 <=200 mg/dL [facility] ([facility]) Comment: National Cholesterol Education Program, ATP III recommendations: Desirable <200 mg/dL in adults <170 mg/dL in adolescents and children Borderline High 200 - 239 mg/dL High >239 mg/dL HDL Cholesterol 54 >=40 mg/dL INT ERNAL [facility] ([facility]) Comment: National Cholesterol Education Program, ATP III recommendations: HDL less than 40 mg/dL suggests higher risk. HDL 60 mg/dL or greater is considered to be a negative risk factor. LDL Cholesterol, Calc 103 <=129 mg/dL [facility] ([facility]) Comment: National Cholesterol Education Program, ATP III recommendations: Optimal: <130 mg/dL (<100 mg/dL if patient has CHD) Borderline High: 130 - 159 mg/dL High Risk: 160 - 189 mg/dL Very High Risk: >189 mg/dL Chol/HDL Ratio 3.1 <=5.0 INTER NAL LAB ([facility]) Comment: Desirable Ratio <5.0 Optimal Ratio 3.5 VLDL Calculated 13 10 - 30 mg/dL [facility] ([facility]) Triglycerides 66 <=150 mg/dL [facility] ([facility]) Comment: National Cholesterol Education Program, ATP III recommendations: Normal Fasting <150 mg/dL Borderline High 150 - 199 mg/dL High 200 - 499 mg/dL Very High >499 mg/dL Blood 04/16/2019 5:34 AM CDT Jonn Reddy MD LAB BLOOD ORDERABLES [facility] ([facility]) [address] [place] [phone] from Last 3 Months or Most Recently Relevant to Health Maintenance Advance Directives * Full Code (Latest Code Status on File) Date Activated Date Inactivated Comments 11/04/2023 10:58 PM 11/08/2023 10:27 PM Care Teams Complex Commercial Litigation Paralegal Relationship Specialty Start Date End Date Armando Solis MD [address] [place] [address] PCP - General 10/06/21
[2024-12-16 17:57] VITALS: PULSE 55; RESP 18; O2SAT 100
[2024-12-16] MEDS: HYDROcodone/acetaminophen (*CRX) 5-325 MG TABLET 1 TAB PO (18:14)
[2024-12-16 18:19] VITALS: BP 179/66
== END 2024-12-16 19:41 | disposition home or self-care (01) ==
PROVIDERS: Emergency Provider Emergency Medicine
DX: S20.211A Contusion of right front wall of thorax, initial encounter (principal); W06.XXXA Fall from bed, initial encounter
CPT/HCPCS: 70450; 71046; 72125; 72128; 72131; 99284; A9270